=== PATIENT | female | born 1995 | race Caucasian/White ===

== ENCOUNTER → 2020-08-31 09:15 | Outpatient (CLI) | payer OTHER, SELFPAY | DX: Z20.828 Contact with and (suspected) exposure to other viral communicable diseases (principal); R11.2 Nausea with vomiting, unspecified; R51.9 Headache, unspecified | CPT/HCPCS: 87635; C9803; U0003 ==

== ENCOUNTER 2020-12-21 14:53 | Outpatient (RCR) | payer OTHER, SELFPAY ==
[2016-01-06 16:49] VITALS: BMI 22.8
== END 2020-12-21 23:59 ==
LOC: IMMUN 14:53
PROVIDERS: PCP Nurse Practitioner; Visit Provider Family Medicine
DX: Z23 Encounter for immunization (principal)
CPT/HCPCS: 0011A; 0012A; 91301